=== PATIENT | male | born 1960 | race Caucasian/White ===

== ENCOUNTER 2022-10-21 11:23 | Day surgery (SDC) | payer OTHER ==
[2022-10-18 11:18] LABS: Potassium 3.8 mEq/L (3.5-5.1)
--- NOTE | 2022-10-18 18:49 | EKG ---
Test Date: 2022-10-18 Test Time: 10:45:33 Tester Equipment: LEX MEASUREMENT RESULTS: Intervals: Rate: 57 OK: 166 QRSD: 100 QT: 444 QTc: 432 [place]: P: 71 OK: 166 QRS: 47 T: 72 INTERPRETIVE STATEMENTS: Sinus bradycardia Otherwise normal ECG Compared to ECG 10/20/2006 16:01:54 No significant changes Electronically Signed On 10-18-22 18:47:49 CDT by Howard Rucker
[2022-10-21] MEDS ORDERED: Ringers Lactate 1,000 ML IV ONE (11:47)
[2022-10-21] MEDS ORDERED: CEFAZOLIN SODIUM 2 GM/VIAL ONE (11:47)
[2022-10-21] MEDS ORDERED: propofoL 200 MG/20 ML VIAL IV ONE (13:05)
[2022-10-21] MEDS ORDERED: FENTANYL CITR 100 MCG/2 ML ONE (13:05)
[2022-10-21] MEDS ORDERED: MIDAZOLAM HCL 2 MG/2 ML INJ ONE (13:05)
[2022-10-21] MEDS ORDERED: ONDANSETRON 4 MG/2 ML VIAL ONE (13:08)
[2022-10-21] MEDS ORDERED: LIDOCAINE 2% MPF 5 ML VIAL ONE (13:08)
[2022-10-21] MEDS ORDERED: BUPIVACAINE 0.25% PF 30 ML VIAL ONE (13:13)
[2022-10-21] MEDS ORDERED: KETOROLAC 30 MG/ML INJ ONE (13:40)
--- NOTE | 2022-10-21 14:06 | P.OP ---
Preoperative diagnosis: Lower Back infected sebaceous cyst Postoperative diagnosis: Lower Back infected sebaceous cyst Primary procedure: Excision of Lower Back Infected Sebaceous Cyst Anesthesia: GETA + Local Estimated blood loss: < 5cc Specimen: Cultures, Sebacous Cyst Findings: ~ 5cm x 4cm sebaceous cyst to fascia Complications: None Transferred to: Recovery Room Condition: Good
[2022-10-21] MEDS ORDERED: EPHEDRINE SULF 50 MG/ML VIAL ONE (14:09)
[2022-10-21 14:48] VITALS: BP 138/79; TEMP 97.3; O2SAT 98
--- NOTE | 2022-10-21 15:35 | OP ---
Date of Procedure: 10/21/2022 Surgeon: Mt Masters MD, Preoperative Diagnosis: Lower back infected sebaceous cyst. Postoperative Diagnosis: Lower back infected sebaceous cyst. Procedure: Excision of lower back infected sebaceous cyst. Anesthesia: General endotracheal plus local with 0.25% Marcaine. Estimated Blood Loss: Less than 5 cc. Specimen: Culture sent both aerobic and anaerobic speciation, sebaceous cyst. Findings: sebaceous cyst extending all the way to the fascia of the lower mid back. Complications: None. Disposition: The patient was transferred to the recovery room in good condition. Procedure In Detail: After informed consent was obtained, the patient was prepped draped in the usua l sterile fashion after adequate anesthesia was achieved. I made an elliptical incision around the o bvious palpable mass of the lower back consistent with a sebaceous cyst. A 15 blade was used to diss ect circumferentially down and electrocautery was used to ultimately circumferentially remove this se baceous cyst, which obviously had infection with abscess. This was cultured for both aerobic and rupesh erobic speciation at this time; however, this was entirely en bloc along with the surrounding capsule . This was sent off for pathologic examination. I then irrigated the cavity and achieved hemostasis with electrocautery. At this point, the wound was then irrigated once again and dried and had good hemostasis. I then reapproximated the edges of this using interrupted 2-0 nylon sutures and sterile dressing placed over top. The patient tolerated the procedure well without evidence of complication and transferred to PACU in good condition. All counts were correct at the end of the case. MICHELLE/FORD Voice ID: [id number] Report ID: [id number]
== END 2022-10-21 15:08 | disposition home or self-care (01) ==
LOC: OR 11:23
PROVIDERS: ATTEND Surgery
PROC: 0JB70ZZ Excision of Back Subcutaneous Tissue and Fascia, Open Approach (ICD-10-PCS; principal; 2022-10-21 13:15)
DX: L72.0 Epidermal cyst (principal)
CPT/HCPCS: 93005; 87070; 80048; 36415; 87205; 88304; 87075; 11406; J2704; J2001; J2250; J3010; J2405; J7120